=== PATIENT | male | born 1960 | race Hispanic/Latino ===

== ENCOUNTER 2022-05-07 07:30 | Day surgery (SDC) | payer MEDICARE ==
[2022-05-05 14:27] LABS: CREATININE 1.1 mg/dL (0.5-1.5); POTASSIUM 4.1 mmol/L (3.5-5.1)
[2022-05-05 14:30] LABS: INR 0.98 (0.85-1.15); PROTHROMBIN TIME 10.7 SEC (9.6-11.6)
[2022-05-05 14:31] LABS: PARTIAL THROMBOPLASTIN TIME 26.4 SEC (26.3-35.5)
[2022-05-06 14:48] VITALS: BP 127/69
[~2022-05-07] VITALS: Ht 170.2 cm; Wt 101.2 kg
[~2022-05-07 07:30] MED LIST: AMIT25TA9 PO; ATOR40TA71 PO; DULO60CA64 PO; FENO145T PO; FOLI1TAB85 PO; HYDR25TA PO; LISI20TA24 PO; METF-444 PO; OMEP40CA21 PO; TAMS-1 PO
[2022-05-07 08:26] VITALS: BP 141/78
[2022-05-07 13:35] VITALS: BP 136/72
[2022-05-07 13:50] VITALS: BP 133/62
== END 2022-05-07 14:12 | disposition home or self-care (01) ==
LOC: DAH 07:30
PROVIDERS: ATTEND Surgery
DX: K91.872 Postprocedural seroma of a digestive system organ or structure following a digestive system procedure (principal); K43.2 Incisional hernia without obstruction or gangrene; I10 Essential (primary) hypertension; K21.9 Gastro-esophageal reflux disease without esophagitis; E11.9 Type 2 diabetes mellitus without complications; Z79.01 Long term (current) use of anticoagulants; Z79.899 Other long term (current) drug therapy; Z79.84 Long term (current) use of oral hypoglycemic drugs; Z98.890 Other specified postprocedural states; Z80.9 Family history of malignant neoplasm, unspecified; Y83.8 Other surgical procedures as the cause of abnormal reaction of the patient, or of later complication, without mention of misadventure at the time of the procedure
CPT/HCPCS: 80048; 85610; 85730; 36415; 49406; 87071; 87077 ×2; 87186 ×2; 87205; 82948; 76705; C1729; A4215; A4222; A4221; A4663; A4216; A4606; A4223 ×3; 75989; 76942